=== PATIENT | female | born 1965 | race African-American/Black ===

== ENCOUNTER 2017-07-27 09:07 | Observation (INO) | payer MEDICARE ==
[~2017-07-27] VITALS: Ht 167.6 cm; Wt 91.2 kg
[2017-07-27] MEDS ORDERED: SODIUM CHLORIDE 0.9% 1000ML 2,000 ML IV STA (09:18)
[2017-07-27] MEDS ORDERED: INSULIN REGULAR, HUMAN 100 UNIT/1 ML 3ML VIAL IV ONE ×2 (09:30→11:15)
--- NOTE | 2017-07-27 09:48 | Diagnostic Imaging Report ---
PROCEDURE: CHEST SINGLE (PORTABLE) COMPARISON: None. INDICATIONS: CENTER CHEST PAIN, GLUCOSE PROBLEMS FINDINGS: LUNGS: No consolidations or edema. Minimal right perihilar atelectasis. PLEURA: No effusions or pneumothorax. HEART \T\ MEDIASTINUM: The heart is within normal size-limits. BONES \T\ SOFT TISSUES: No acute findings. CONCLUSION: No acute thoracic abnormality. Arie Seymour D.O. Dictated by: Arie Seymour D.O. on 07/27/2017 at 9:47 Electronically approved by: Arie Seymour D.O. on 07/27/2017 at 9:47
[2017-07-27] MEDS ORDERED: ASPIRIN 325 MG TAB PO ONE (10:30)
[2017-07-27 10:33] LABS: BASOPHILS % 0.3 % (0.0-1.0); EOSINOPHILS # (AUTO) 0.1 (0.0-0.4); EOSINOPHILS % 1.6 % (0.0-6.0); HEMATOCRIT 45.5 % (34.2-44.1); HEMOGLOBIN 15.2 g/dL (12.0-16.0); LYMPHOCYTES # (AUTO) 2.9 (1.0-3.2); LYMPHOCYTES % 35.7 % (18.0-39.1); MEAN CORPUSCULAR HEMOGLOBIN 28.3 pg (28-32); MEAN CORPUSCULAR HGB CONC 33.4 g/dL (31-35); MEAN CORPUSCULAR VOLUME 84.7 fL (81-99); MONOCYTES # (AUTO) 0.5 (0.2-0.8); MONOCYTES % 5.8 % (4.4-11.3); NEUTROPHILS # (AUTO) 4.5 (2.1-6.9); NEUTROPHILS % 56.2 % (38.7-80.0); PLATELET COUNT 267 x10e3/uL (140-360); RED BLOOD COUNT 5.37 x10e6/uL (3.6-5.1); RED CELL DISTRIBUTION WIDTH 13.1 % (11.7-14.4)
[2017-07-27 10:55] LABS: ALANINE AMINOTRANSFERASE 12 IU/L (0-55); ALBUMIN 3.7 g/dL (3.5-5.0); ALBUMIN/GLOBULIN RATIO 0.7 (0.8-2.0); ALKALINE PHOSPHATASE 140 IU/L (40-150); ANION GAP 14.7 mmol/L (8-16); BLOOD UREA NITROGEN 8 mg/dL (7-26); BUN/CREATININE RATIO 8 (6-25); CALCIUM 9.9 mg/dL (8.4-10.2); CARBON DIOXIDE 23 mmol/L (22-29); CHLORIDE 97 mmol/L (98-107); CHOL/HDL RATIO 8.2 (3.0-3.6); CHOLESTEROL 255 MD/DL (0-199); CREATININE, SERUM 1.02 mg/dL (0.57-1.11); EST GLOMERULAR FILTRATION RATE > 60 ML/MIN (60-); HDL CHOLESTEROL 31 MG/DL (40-60); LDL CHOLESTEROL 179 MG/DL (60-130); MAGNESIUM 1.8 MG/DL (1.3-2.1); PHOSPHORUS 3.4 MG/DL (2.3-4.7); POTASSIUM 3.7 mmol/L (3.5-5.1); SODIUM 131 mmol/L (136-145); TRIGLYCERIDES 223 MG/DL (0-149)
[2017-07-27 10:57] LABS: GLUCOSE 501 mg/dL (74-118)
[2017-07-27] MEDS ORDERED: ONDANSETRON HCL INJ 2 MG/ML VIAL IV PRN (11:15)
[2017-07-27] MEDS ORDERED: ASPIRIN 81 MG CHEW TAB PO ONE (11:15)
[2017-07-27] MEDS ORDERED: DEXTROSE 50% SYRINGE 50 ML IV PRN ×2 (11:15→13:15)
[2017-07-27] MEDS ORDERED: SODIUM CHLORIDE FLUSH 10 ML SYR INJ PRN (11:15)
[2017-07-27] MEDS: NITROGLYCERIN 0.1MG/HR PATCH TOP SCH (11:21)
[2017-07-27] MEDS: SODIUM CHLORIDE 0.9% 1000ML 1,000 ML IV SCH ×2 (11:38→19:27)
[2017-07-27 12:15] LABS: BILIRUBIN,URINE NEGATIVE (NEGATIVE); KETONES,URINE NEGATIVE (NEGATIVE); LEUKOCYTE ESTERASE ,URINE NEGATIVE (NEGATIVE); NITRITE,URINE NEGATIVE (NEGATIVE); PROTEIN,URINE DIPSTICK NEGATIVE (NEGATIVE); URINE UROBILINOGEN 0.2 mg/dL (0.2 - 1)
[2017-07-27 12:17] LABS: CLARITY,URINE SL CLOUDY (CLEAR); COLOR,URINE YELLOW (YELLOW)
--- OUTSIDE RECORDS SUMMARY | 2017-07-27 12:22 | XMS REPORT ---
Author Author [facility] Address Unknown Phone Unavailable Care Team Providers Care Civil Project Engineer Name Role Phone MOODY BRAY Unavailable Unavailable SOFÍASandrine HARPAL Unavailable Unavailable Problems This patient has no known problems. Allergies, Adverse Reactions, Alerts This patient has no known allergies or adverse reactions. Medications This patient has no known medications. Results Test Description Test Time Test Comments Text Results Atomic Results Result Comments CT, ABDOMEN 2017-03-03 22:41:00 Reason for exam:->abdominal painIs the patient ?->UnknownWhat is the patient's sedation requirement?->No Sedation FINAL REPORT CT, ABDOMEN \T\ PELVIS, WITHOUT IV CONTRAST INDICATION: abdominal painabdominal pain, allergy to contrast COMPARISON: November 01, 2004 TECHNIQUE: CT of the abdomen and pelvis WITHOUT intravenous contrast. DOSE REDUCTION: Dose modulation, iterative reconstruction , and/or weight-based adjustment of the mA/kV was utilized to reduce the radiation dose to as low as reasonably achievable. FINDINGS:NOTE: Absence of intravenous contrast decreases sensitivity for focal lesions and vascular pathology. Lower thorax: Unremarkable Liver: No parenchymal abnormality.Gallbladder and biliary tree: No ductal dilation or stones.Pancreas : No acute findings.Spleen: No acute findingsAdrenal Glands: No acute findings.Kidneys and ureters: No hydronephrosis or nephrolithiasis.Bladder and reproductive organs: Unremarkable. Stomach and Duodenum: No significant findings.Small and large intestine: Normal calibers. Moderate stool burden.Appendix: Normal. Major vascular structures: Normal aortic caliber.Peritoneum and retroperitoneum: No free air, fluid or adenopathy. Skeleton: Mild multilevel degenerative changes and discogenic disease worse at L4-L5.Additional findings: None. IMPRESSION: Limited noncontrast evaluation revealing no acute abnormality in the abdomen or pelvis. Moderate stool burden may reflect constipation. Signed: JR Chris Robert MDReport Verified Date/Time: 03/03/2017 22:41:49 Reading Location: [facility] B1 C013T Transitional Reading Room -GLUCOSE METER 2017-03-03 21:14:00 POC-GLUCOSE METER (BEAKER) (test qqfx=3799) 141 mg/dL 70-110 TESTED AT [facility] [address] [facility] [address] POCT-GLUCOSE [id number] 21:08:00* Test Item Value Reference Range Comments POC-GLUCOSE METER (BEAKER) (test ozgy=0098) 154 mg/dL 70-110 TESTED AT [facility] [address] [facility] [address] URINALYSIS W/ [id number] 19:07:00* Test Item Value Reference Range Comments COLOR (BEAKER) (test eojj=412) Yellow CLARITY (BEAKER) (test dfok=328) Clear SPECIFIC GRAVITY UA (BEAKER) (test ofxc=490) 1.033 1.001-1.035 PH UA (BEAKER) (test pzie=929) 5.5 5.0-8.0 PROTEIN UA (BEAKER) (test objp=580) 20 mg/dL Negative GLUCOSE UA (BEAKER) (test emdj=319) >1000 mg/dL Negative KETONES UA (BEAKER) (test zgrv=466) Negative Negative BILIRUBIN UA (BEAKER) (test nhyr=589) Negative Negative BLOOD UA (BEAKER) (test fupe=274) Negative Negative NITRITE UA (BEAKER) (test nexz=056) Negative Negative LEUKOCYTE ESTERASE UA (BEAKER) (test mxul=408) Small Negative UROBILINOGEN UA (BEAKER) (test yyug=851) 2.0 mg/dL 0.2-1.0 RBC UA (BEAKER) (test bddd=324) 2 /HPF WBC UA (BEAKER) (test sbqv=213) 18 /HPF MUCUS (BEAKER) (test revz=9912) Many SQUAMOUS EPITHELIAL (BEAKER) (test lqiz=887) 3 /HPF HYALINE CASTS (BEAKER) (test rwda=658) 12 /LPF SOURCE(BEAKER) (test amqi=0127) Urine, Voided [id number] 17:50:00* Test Item Value Reference Range Comments LIPASE (BEAKER) (test exwt=934) 16 U/L 8-78 [id number] 17:50:00* Test Item Value Reference Range Comments AMYLASE (BEAKER) (test tjrq=596) 38 U/L 25-125 BASIC METABOLIC [id number] 17:50:00* Test Item Value Reference Range Comments SODIUM (BEAKER) (test icln=328) 139 meq/L 136-145 POTASSIUM (BEAKER) (test xtqn=661) 4.0 meq/L 3.5-5.1 CHLORIDE (BEAKER) (test jmhh=806) 104 meq/L 98-107 CO2 (BEAKER) (test ufny=913) 27 meq/L 22-29 BLOOD UREA NITROGEN (BEAKER) (test wart=288) 14 mg/dL 7-21 CREATININE (BEAKER) (test ewas=845) 0.87 mg/dL 0.57-1.25 GLUCOSE RANDOM (BEAKER) (test nrjb=500) 170 mg/dL 70-105 CALCIUM (BEAKER) (test ocye=856) 9.8 mg/dL 8.4-10.2 EGFR (BEAKER) (test fawc=4149) 83 mL/min/1.73 sq m ESTIMATED GFR IS NOT ACCURATE CREATININE CLEARANCE IN PREDICTING GLOMERULAR FILTRATION RATE. ESTIMATED GFR IS NOT APPLICABLE FOR DIALYSIS PATIENTS. HEPATIC FUNCTION [id number] 17:50:00* Test Item Value Reference Range Comments TOTAL PROTEIN (BEAKER) (test iacw=387) 8.2 gm/dL 6.0-8.3 ALBUMIN (BEAKER) (test eeme=1946) 4.2 g/dL 3.5-5.0 BILIRUBIN TOTAL (BEAKER) (test poyc=166) 0.3 mg/dL 0.2-1.2 BILIRUBIN DIRECT (BEAKER) (test odmh=622) 0.1 mg/dL 0.1-0.5 ALKALINE PHOSPHATASE (BEAKER) (test doqw=769) 91 U/L 40-150 AST (SGOT) (BEAKER) (test kdfa=709) 9 U/L 5-34 ALT (SGPT) (BEAKER) (test dtzs=806) 7 U/L 6-55 CBC W/PLT COUNT & AUTO [id number] 17:12:00* Test Item Value Reference Range Comments WHITE BLOOD CELL COUNT (BEAKER) (test wxwa=583) 11.6 K/ L 3.5-10.5 RED BLOOD CELL COUNT (BEAKER) (test byxc=165) 5.42 M/ L 3.93-5.22 HEMOGLOBIN (BEAKER) (test eayn=484) 15.2 GM/DL 11.2-15.7 HEMATOCRIT (BEAKER) (test cqvw=563) 47.4 % 34.1-44.9 MEAN CORPUSCULAR VOLUME (BEAKER) (test gnyh=346) 87.5 fL 79.4-94.8 MEAN CORPUSCULAR HEMOGLOBIN (BEAKER) (test byij=703) 28.0 pg 25.6-32.2 MEAN CORPUSCULAR HEMOGLOBIN CONC (BEAKER) (test jydw=232) 32.1 GM/DL 32.2- 35.5 RED CELL DISTRIBUTION WIDTH (BEAKER) (test wdrj=592) 13.8 % 11.7-14.4 PLATELET COUNT (BEAKER) (test fgwg=792) 248 K/CU MM 150-450 MEAN PLATELET VOLUME (BEAKER) (test rftv=804) 10.4 fL 9.4-12.3 NUCLEATED RED BLOOD CELLS (BEAKER) (test ninz=999) 0 /100 WBC 0-0 NEUTROPHILS RELATIVE PERCENT (BEAKER) (test xrii=660) 63 % LYMPHOCYTES RELATIVE PERCENT (BEAKER) (test fbjx=065) 30 % MONOCYTES RELATIVE PERCENT (BEAKER) (test btqy=196) 6 % EOSINOPHILS RELATIVE PERCENT (BEAKER) (test rpzx=857) 1 % BASOPHILS RELATIVE PERCENT (BEAKER) (test jadr=935) 0 % NEUTROPHILS ABSOLUTE COUNT (BEAKER) (test nqlo=595) 7.34 K/ L 1.56-6.13 LYMPHOCYTES ABSOLUTE COUNT (BEAKER) (test xgmd=893) 3.43 K/ L 1.18-3.74 MONOCYTES ABSOLUTE COUNT (BEAKER) (test upah=151) 0.65 K/ L 0.24-0.36 EOSINOPHILS ABSOLUTE COUNT (BEAKER) (test xfkg=875) 0.15 K/ L 0.04-0.36 BASOPHILS ABSOLUTE COUNT (BEAKER) (test ykey=501) 0.03 K/ L 0.01-0.08 IMMATURE GRANULOCYTES-RELATIVE PERCENT (BEAKER) (test qmsq=0529) 0 % 0-1 CHEST SINGLE (PORTABLE) [facility] [address] [address] Patient Name: JAMES GEORGE MR #: [id number] : 1965 Age/Sex: 51/F Req #: [id number] Adm Physician: Ordered by: MOODY BRAY MD Report #: [id number] Location: ER Room/Bed: Procedure: [id number] 0023 DX/CHEST SINGLE (PORTABLE) Exam Date: Exam Time: REPORT STATUS: Signed PROCEDURE: CHEST SINGLE (PORTABLE) COMPARISON: None. INDICATIONS: CENTER CHEST PAIN, GLUCOSE PROBLEMS FINDINGS: LUNGS: No consolidations or edema. Minimal right perihilar atelectasis. PLEURA: No effusions or pneumothorax. HEART T MEDIASTINUM: The heart is within normal size-limits. BONES T SOFT TISSUES: No acute findings. CONCLUSION: No acute thoracic abnormality. Suzy Seymour D.O. Dictated by: Suzy Seymour D.O. on 07/27/2017 at 9:47 Electronically approved by: Suzy Seymour D.O. on 07/27/2017 at 9:47 Dictated By: SUZY SEYMOUR DO 6 Transcribed By: TIEN on 07/27/17946 COPY TO: MOODY BRAY MD
--- OUTSIDE RECORDS SUMMARY | 2017-07-27 12:22 | XMS REPORT | Clinical Summary ---
Author Author RICHARD [facility] Address Unknown Phone Unavailable Care Team Providers Care Infantry Officer Name Role Phone PCP Unavailable Allergies Active Allergy Reactions Severity Noted Date Comments Codeine Rash High 11/17/2012 Tramadol Rash High 11/17/2012 Iodine And Iodide Swelling 03/03/2017 IV contrast Containing Products Current Medications Prescription Sig. Disp. Refills Start End Date Status Date metFORMIN (GLUCOPHAGE) Take 500 mg by mouth 2 Active 500 MG tablet (two) times daily with breakfast and dinner. atorvastatin (LIPITOR) 40 Take 40 mg by mouth Active MG tablet daily. canagliflozin (INVOKANA) Take 100 mg by mouth Active 100 mg tablet daily. fLUoxetine (PROZAC) 20 MG Take 20 mg by mouth 3 Active capsule (three) times daily Dose and frequency confirmed and verified with the patient. . FLUTICASONE PROPIONATE by Nasal route as Active (FLUTICASONE NASAL) directed 50 mcg/act - Take 2 sprays in each nostril daily . gabapentin (NEURONTIN) Take 100 mg by mouth 3 Active 100 MG capsule (three) times daily. glipiZIDE (GLUCOTROL) 10 Take 10 mg by mouth 2 Active MG tablet (two) times daily before meals. hydrOXYzine (ATARAX) 25 Take 25 mg by mouth as Active MG tablet needed for Itching. lisinopril Take 5 mg by mouth daily. Active (PRINIVIL,ZESTRIL) 5 MG tablet naproxen sodium (ANAPROX) Take 550 mg by mouth as Active 550 MG tablet needed for Pain. omeprazole (PRILOSEC) 20 Take 20 mg by mouth Active MG capsule daily. clidinium-chlordiazepoxid Take 1 capsule by mouth 4 16 capsule 0 03/0304/02/20 e (LIBRAX) 5-2.5 mg per (four) times daily before 17 17 capsule meals and nightly for 30 days. Active Problems Not on file Encounters Date Type Specialty Care Team Description 03/03/2017 Emergency Emergency Medicine Jass Persaud MD Generalized abdominal pain (Primary Dx);Pain of left lower extremity after 07/26/2016 Social History Tobacco Use Types Packs/Day Years Used Date Current Every Day Smoker 1 Smokeless Tobacco: Never Used Alcohol Use Drinks/Week oz/Week Comments No Sex Assigned at Date Recorded Not on file Last Filed Vital Signs Vital Sign Reading Time Taken Blood Pressure 103/58 03/03/2017 9:17 PM CDT Pulse 98 03/03/2017 9:17 PM CDT Temperature 37.2 C (99 F) 03/03/2017 2:49 PM CDT Respiratory Rate 18 03/03/2017 9:17 PM CDT Oxygen Saturation 99% 03/03/2017 9:17 PM CDT Inhaled Oxygen - - Concentration Weight 90.7 kg (200 lb) 03/03/2017 2:49 PM CDT Height 167.6 cm (5' 6") 03/03/2017 2:49 PM CDT Body Mass Index 32.28 03/03/2017 2:49 PM CDT Plan of Treatment Not on file Results * PERIPHERAL VASCULAR REPORT - SCAN (03/04/2017 10:53 AM) * CT abdomen/pelvis without iv contrast (03/03/2017 10:10 PM) Specimen Performing Laboratory [employer] Narrative FINAL REPORT CT, ABDOMEN \\T\\ PELVIS, WITHOUT IV CONTRAST INDICATION: abdominal pain abdominal pain, allergy to contrast COMPARISON: November 01, 2004 TECHNIQUE: CT of the abdomen and pelvis WITHOUT intravenous contrast. DOSE REDUCTION: Dose modulation, iterative reconstruction, and/or weight-based adjustment of the mA/kV was utilized to reduce the radiation dose to as low as reasonably achievable. FINDINGS: NOTE:Absence of intravenous contrast decreases sensitivity for focal lesions and vascular pathology. Lower thorax: Unremarkable Liver: No parenchymal abnormality. Gallbladder and biliary tree: No ductal dilation or stones. Pancreas: No acute findings. Spleen: No acute findings Adrenal Glands: No acute findings. Kidneys and ureters: No hydronephrosis or nephrolithiasis. Bladder and reproductive organs: Unremarkable. Stomach and Duodenum: No significant findings. Small and large intestine: Normal calibers. Moderate stool burden. Appendix: Normal. Major vascular structures: Normal aortic caliber. Peritoneum and retroperitoneum: No free air, fluid or adenopathy. Skeleton: Mild multilevel degenerative changes and discogenic disease worse at L4-L5. Additional findings: None. IMPRESSION: Limited noncontrast evaluation revealing no acute abnormality in the abdomen or pelvis. Moderate stool burden may reflect constipation. Signed: JR Chris Robert MD Report Verified Date/Time:03/03/2017 22:41:49 Reading Location: [address] Transitional Reading Room Procedure Note Interface, External Ris In - 03/03/2017 10:44 PM CDT FINAL REPORT CT, ABDOMEN \\T\\ PELVIS, WITHOUT IV CONTRAST INDICATION: abdominal pain abdominal pain, allergy to contrast COMPARISON: November 01, 2004 TECHNIQUE: CT of the abdomen and pelvis WITHOUT intravenous contrast. DOSE REDUCTION: Dose modulation, iterative reconstruction, and/or weight-based adjustment of the mA/kV was utilized to reduce the radiation dose to as low as reasonably achievable. FINDINGS: NOTE: Absence of intravenous contrast decreases sensitivity for focal lesions and vascular pathology. Lower thorax: Unremarkable Liver: No parenchymal abnormality. Gallbladder and biliary tree: No ductal dilation or stones. Pancreas: No acute findings. Spleen: No acute findings Adrenal Glands: No acute findings. Kidneys and ureters: No hydronephrosis or nephrolithiasis. Bladder and reproductive organs: Unremarkable. Stomach and Duodenum: No significant findings. Small and large intestine: Normal calibers. Moderate stool burden. Appendix: Normal. Major vascular structures: Normal aortic caliber. Peritoneum and retroperitoneum: No free air, fluid or adenopathy. Skeleton: Mild multilevel degenerative changes and discogenic disease worse at L4-L5. Additional findings: None. IMPRESSION: Limited noncontrast evaluation revealing no acute abnormality in the abdomen or pelvis. Moderate stool burden may reflect constipation. Signed: JR Chris Robert MD Report Verified Date/Time: 03/03/2017 22:41:49 Reading Location: [address] Transitional Reading Room * Venous doppler leg, left (03/03/2017 9:51 PM) Component Value Ref Range Ejection Fraction Specimen Performing Laboratory [facility] Impressions Left Impression 1. There is no deep venous obstruction in the common femoral, profunda femoral, femoral, popliteal, posterior tibial or peroneal veins. 2. There is no superficial venous obstruction in the great saphenous vein. Conclusions Summary Venous duplex imaging and compression of the left lower extremity were performed. The veins were adequately visualized. The left venous system was patent and compressible with no evidence of thrombus. The venous Doppler waveforms were phasic with respiration . Signature Velocities are measured in cm/s ; Diameters are measured in cm Narrative [facility] - Lower Extremities DVT Study Demographics Patient Name Emile FLORES of Study 03/03/2017 NEIDA [id number] 51 Visit Number [id number] Female Accession Number [id number] of 1965 ReferringBeers Jass SandersRoom Number ED14 Physician SonographRonak Calderon. Physician IGOR Penny, SOHAM Procedure Type of Study: Veins: Lower Extremities DVT Study, VENOUS DOPPLER LEG, LEFT. Indications for Study:Abdominal pain and Leg pain . Patient Status:STAT. Study Location:Portable. Technical Quality:Adequate visualization. Risk Factors History of Disease + +----+ + !Diagnosis!Date!Comments ! + +----+ + !History/Risk Factors:!!Current Smoker, DM, Obesity ! + +----+ + Procedure Note Interface, External Ris In - 03/04/2017 10:24 AM CDT [facility] - Lower Extremities DVT Study Demographics Patient Name JAMES FLORES Date of Study 03/03/2017 NEIDA Age 51 Visit Number [id number] Gender Female Accession Number [id number] Date of 1965 Referring Hung CabezasMimi Room Number ED14 Physician Housekeeping Assistant Mendoza Oliveira Interpreting Tommy Navarro, Physician , RPVI Procedure Type of Study: Veins: Lower Extremities DVT Study, VENOUS DOPPLER LEG, LEFT. Indications for Study:Abdominal pain and Leg pain . Patient Status:STAT. Study Location:Portable. Technical Quality:Adequate visualization. Risk Factors History of Disease + +----+ + !Diagnosis !Date!Comments ! + +----+ + !History/Risk Factors: ! !Current Smoker, DM, Obesity ! + +----+ + Impressions Left Impression 1. There is no deep venous obstruction in the common femoral, profunda femoral, femoral, popliteal, posterior tibial or peroneal veins. 2. There is no superficial venous obstruction in the great saphenous vein. Conclusions Summary Venous duplex imaging and compression of the left lower extremity were performed. The veins were adequately visualized. The left venous system was patent and compressible with no evidence of thrombus. The venous Doppler waveforms were phasic with respiration . Signature Velocities are measured in cm/s ; Diameters are measured in cm * POC-Glucose meter (03/03/2017 9:12 PM) Only the most recent of 2 results within the time period is included. Component Value Ref Range POC-Glucose Meter 141 (H)Comment: TESTED AT [address] 70 - 110 mg /dL [facility] [address] Specimen Performing Laboratory Blood [facility] [address] [address] * CBC with platelet count + automated diff (03/03/2017 4:43 PM) Component Value Ref Range WBC 11.6 (H) 3.5 - 10.5 K/ L RBC 5.42 (H) 3.93 - 5.22 M/ L Hemoglobin 15.2 11.2 - 15.7 GM/DL Hematocrit 47.4 (H) 34.1 - 44.9 % MCV 87.5 79.4 - 94.8 fL MCH 28.0 25.6 - 32.2 pg MCHC 32.1 (L) 32.2 - 35.5 GM/DL RDW 13.8 11.7 - 14.4 % Platelets 248 150 - 450 K/CU MM MPV 10.4 9.4 - 12.3 fL nRBC 0 0 - 0 /100 WBC % Neutros 63 % % Lymphs 30 % % Monos 6 % % Eos 1 % % Baso 0 % # Neutros 7.34 (H) 1.56 - 6.13 K/ L # Lymphs 3.43 1.18 - 3.74 K/ L # Monos 0.65 (H) 0.24 - 0.36 K/ L # Eos 0.15 0.04 - 0.36 K/ L # Baso 0.03 0.01 - 0.08 K/ L Immature 0 0 - 1 % Granulocytes-Relative Specimen Performing Laboratory Blood - Arm, Left [address] [address] * Urinalysis w/ Microscopic (03/03/2017 4:43 PM) Component Value Ref Range Color, UA Yellow Clarity, UA Clear Specific Davis, UA 1.033 1.001 - 1.035 pH, UA 5.5 5.0 - 8.0 Protein, UA 20 mg/dL (A) Negative Glucose, UA >1000 mg/dL (A) Negative Ketones, UA Negative Negative Bilirubin, UA Negative Negative Blood, UA Negative Negative Nitrite, UA Negative Negative Leukocytes, UA Small (A) Negative Urobilinogen, UA 2.0 (H) 0.2 - 1.0 mg/dL RBC, UA 2 /HPF WBC, UA 18 /HPF Mucus Many Squam Epithel, UA 3 /HPF Hyaline Casts, UA 12 /LPF Specimen Source Urine, Voided Specimen Performing Laboratory Urine - Urine, Voided [address] [address] * CBC with platelet count + automated diff (03/03/2017 4:43 PM) Specimen Performing Laboratory Blood Narrative The following orders were created for panel order CBC with platelet count + automated diff. Procedure Abnormality Status --------- - ------ CBC with platelet count ...[[id number]]AbnormalFinal result Please view results for these tests on the individual orders. * Lipase (03/03/2017 4:43 PM) Component Value Ref Range Lipase 16 8 - 78 U/L Specimen Performing Laboratory Blood - Arm, [address] [address] * Amylase (03/03/2017 4:43 PM) Component Value Ref Range Amylase 38 25 - 125 U/L Specimen Performing Laboratory Blood - Arm, [address] [address] * Hepatic function panel (03/03/2017 4:43 PM) Component Value Ref Range Protein, Total 8.2 6.0 - 8.3 gm/dL Albumin 4.2 3.5 - 5.0 g/dL Total Bilirubin 0.3 0.2 - 1.2 mg/dL Bilirubin, Direct 0.1 0.1 - 0.5 mg/dL Alkaline Phosphatase 91 40 - 150 U/L AST 9 5 - 34 U/L ALT 7 6 - 55 U/L Specimen Performing Laboratory Blood - Arm, [address] [address] * Basic Metabolic Panel (03/03/2017 4:43 PM) Component Value Ref Range Sodium 139 136 - 145 meq/L Potassium 4.0 3.5 - 5.1 meq/L Chloride 104 98 - 107 meq/L CO2 27 22 - 29 meq/L BUN 14 7 - 21 mg/dL Creatinine 0.87 0.57 - 1.25 mg/dL Glucose 170 (H) 70 - 105 mg/dL Calcium 9.8 8.4 - 10.2 mg/dL EGFR 83Comment: ESTIMATED GFR IS NOT ACCURATE mL/min/1.73 sq m CREATININE CLEARANCE IN PREDICTING GLOMERULAR FILTRATION RATE. ESTIMATED GFR IS NOT APPLICABLE FOR DIALYSIS PATIENTS. Specimen Performing Laboratory Blood - Arm, [address] [address] after 07/26/2016
[2017-07-27 13:12] VITALS: BP 101/53
[2017-07-27 13:25] LABS: EPITHELIAL CELLS,URINE RARE /LPF
[2017-07-27] MEDS ORDERED: GABAPENTIN300 MG PO (13:26)
[2017-07-27] MEDS ORDERED: OMEPRAZOLE40 MG PO (13:26)
[2017-07-27] MEDS ORDERED: GLIPIZIDE5 MG PO (13:26)
[2017-07-27] MEDS ORDERED: FLUTICASONE PRO16 GM (13:26)
[2017-07-27] MEDS ORDERED: [UNRECOGNIZED DRUG - REMARK] TOP (13:26)
[2017-07-27] MEDS ORDERED: FLUOXETINE HCL20 MG PO (13:26)
[2017-07-27] MEDS ORDERED: METFORMIN HCL500 MG PO (13:26)
[2017-07-27] MEDS ORDERED: HYDROXYZINE HCL25 MG PO (13:26)
[2017-07-27] MEDS ORDERED: LISINOPRIL2.5 MG PO (13:26)
[2017-07-27] MEDS ORDERED: ATORVASTATIN CA20 MG PO (13:26)
[2017-07-27] MEDS ORDERED: DICYCLOMINE HCL10 MG PO (13:26)
[2017-07-27 13:32] VITALS: BP 101/53
[2017-07-27 14:01] VITALS: BP 101/53
[2017-07-27] MEDS: INSULIN LISPRO 100 UNIT/1 ML 3ML VIAL SQ SCH ×2 (16:07→21:46)
[2017-07-27 16:45] VITALS: BP 149/74
[2017-07-27] MEDS: ACETAMINOPHEN 325 MG TAB PO PRN (17:15)
[2017-07-27] MEDS: PANTOPRAZOLE SOD 40 MG TABEC PO SCH (17:15)
[2017-07-27 20:00] VITALS: BP 100/56
[2017-07-27] MEDS ORDERED: ATORVASTATIN 20 MG TAB PO SCH (21:00)
[2017-07-27] MEDS: GABAPENTIN 300 MG CAP PO SCH (21:44)
[2017-07-27 22:48] VITALS: BP 100/56
[2017-07-28] VITALS: BP 120/66
[2017-07-28] MEDS: ACETAMINOPHEN 325 MG TAB PO PRN (02:52)
[2017-07-28] MEDS: GABAPENTIN 300 MG CAP PO SCH ×2 (02:52→15:06)
[2017-07-28] MEDS: SODIUM CHLORIDE 0.9% 1000ML 1,000 ML IV SCH ×2 (03:53→11:09)
[2017-07-28 04:00] VITALS: BP 147/77
[2017-07-28 06:25] LABS: BASOPHILS % 0.4 % (0.0-1.0); EOSINOPHILS # (AUTO) 0.2 (0.0-0.4); EOSINOPHILS % 1.9 % (0.0-6.0); HEMATOCRIT 38.2 % (34.2-44.1); HEMOGLOBIN 12.6 g/dL (12.0-16.0); LYMPHOCYTES # (AUTO) 3.5 (1.0-3.2); LYMPHOCYTES % 36.6 % (18.0-39.1); MEAN CORPUSCULAR HEMOGLOBIN 28.3 pg (28-32); MEAN CORPUSCULAR VOLUME 85.7 fL (81-99); MONOCYTES # (AUTO) 0.5 (0.2-0.8); MONOCYTES % 5.5 % (4.4-11.3); NEUTROPHILS # (AUTO) 5.3 (2.1-6.9); NEUTROPHILS % 55.3 % (38.7-80.0); PLATELET COUNT 206 x10e3/uL (140-360); RED BLOOD COUNT 4.46 x10e6/uL (3.6-5.1); RED CELL DISTRIBUTION WIDTH 13.2 % (11.7-14.4)
[2017-07-28 06:44] LABS: ANION GAP 10.9 mmol/L (8-16); BLOOD UREA NITROGEN 7 mg/dL (7-26); BUN/CREATININE RATIO 10 (6-25); CALCIUM 8.2 mg/dL (8.4-10.2); CARBON DIOXIDE 23 mmol/L (22-29); CHLORIDE 107 mmol/L (98-107); CREATININE, SERUM 0.71 mg/dL (0.57-1.11); EST GLOMERULAR FILTRATION RATE > 60 ML/MIN (60-); GLUCOSE 257 mg/dL (74-118); POTASSIUM 3.9 mmol/L (3.5-5.1); SODIUM 137 mmol/L (136-145)
[2017-07-28 06:46] LABS: CREATINE KINASE 48 IU/L (29-168); LIPASE 117 U/L (8-78)
[2017-07-28] MEDS ORDERED: CANAGLIFLOZIN 100 MG TABLET PO SCH (07:30)
[2017-07-28 08:04] VITALS: BP 129/80
[2017-07-28] MEDS: GLIPIZIDE 5 MG TAB PO SCH ×2 (08:34→16:35)
[2017-07-28] MEDS: INSULIN LISPRO 100 UNIT/1 ML 3ML VIAL SQ SCH ×3 (08:35→16:35)
[2017-07-28] MEDS: NITROGLYCERIN 0.1MG/HR PATCH TOP SCH (08:35)
[2017-07-28] MEDS: PANTOPRAZOLE SOD 40 MG TABEC PO SCH (08:35)
[2017-07-28] MEDS ORDERED: ASPIRIN 81 MG ENTERIC COATED PO SCH (09:00)
[2017-07-28] MEDS ORDERED: FLUOXETINE HCL 20 MG CAP PO SCH (09:00)
[2017-07-28 09:27] VITALS: BP 129/80
[2017-07-28 12:05] VITALS: BP 106/60
[2017-07-28 15:46] VITALS: BP 122/69
--- NOTE | 2017-07-28 15:56 | Discharge Summary ---
FINAL DIAGNOSIS: Uncontrolled diabetes. SECONDARY DIAGNOSIS 1. Dyslipidemia. 2. Sciatica. 3. Gastroesophageal reflux disease. CONSULTANTS: None. PROCEDURES/STUDIES PERFORMED: None. HISTORY: Per H\T\P. HOSPITAL COURSE: Patient was admitted with sugar in the 400s, the reason being that she stopped her metformin about a month ago due to diarrhea and also she ran out of her Invokana about a month ago and could not get a refill. Once I restarted her on her Invokana and continuing her glipizide, her sugar is mostly in the 200s now. Her pseudohyponatremia got better as well. Unfortunately, her A1c is still 12.8%. I have discussed this with her primary care doctor, Natalio Shi. Patient will follow up with her, and she will refer her to an medical stenographer. Most likely she will need to be started on insulin. As far as her chronic abdominal pain, outpatient workup has been done including EGD and colonoscopy. Given the location of the pain being epigastric, I went ahead and checked her lipase, which is slightly elevated. I have relayed this information to her PCP. I think, given that it is only mildly elevated, outpatient workup/followup is appropriate. Patient will go back to the GI doctor that she was seeing. CONDITION ON DISCHARGE: Stable. DISCHARGE MEDICATIONS: Please see medication reconciliation form. SONU BHAGAT M.D. Job#: [id number] cc:NATALIO SHI DO
== END 2017-07-28 16:58 | disposition home or self-care (01) ==
LOC: ER 09:07 → EDBEDREQ 11:56 → INTOOBSV 12:19 → ERHOLD 12:19 → MED/SURG 12:21
PROVIDERS: ADMIT Internal Medicine; ATTEND Internal Medicine
DX: E11.65 Type 2 diabetes mellitus with hyperglycemia (principal); E78.5 Hyperlipidemia, unspecified; E87.1 Hypo-osmolality and hyponatremia; K21.9 Gastro-esophageal reflux disease without esophagitis; G57.00 Lesion of sciatic nerve, unspecified lower limb; R07.89 Other chest pain; R10.13 Epigastric pain; G89.29 Other chronic pain; Z91.14 Patient's other noncompliance with medication regimen; Z88.5 Allergy status to narcotic agent; Z91.041 Radiographic dye allergy status; Z79.84 Long term (current) use of oral hypoglycemic drugs
CPT/HCPCS: 36415 ×2; 71045; 80048; 80053; 80061; 81001; 82550; 82553; 82948 ×2; 83036; 83690; 83735; 83930; 84100; 84484 ×2; 85025 ×2; 87086; 93005 ×2; 96372; 99284; G0378 ×2; J7030 ×2

== ENCOUNTER 2018-05-31 11:18 | Emergency (ER) | payer MEDICARE ==
[~2018-05-31] VITALS: Ht 167.6 cm; Wt 98.1 kg
[~2018-05-31 11:18] MED LIST: ATORVASTATIN CA20 MG PO; DICYCLOMINE HCL10 MG PO; FLUOXETINE HCL20 MG PO; FLUTICASONE PRO16 GM; GABAPENTIN300 MG PO; GLIPIZIDE5 MG PO; HYDROXYZINE HCL25 MG PO; LISINOPRIL2.5 MG PO; METFORMIN HCL500 MG PO; OMEPRAZOLE40 MG PO; [UNRECOGNIZED DRUG - REMARK] TOP
--- OUTSIDE RECORDS SUMMARY | 2018-05-31 11:21 | XMS REPORT | Clinical Summary ---
Author Author RICHARD [email or web address] Address Unknown Phone Unavailable Care Team Providers Care Shank Maker Name Role Phone Natalio Shi PCP Allergies Comments Active Allergy Reactions Severity Noted Date Codeine Rash High 11/17/2012 IV contrast Iodine And Iodide Swelling 03/03/2017 Containing Products Tramadol Rash High 11/17/2012 Medications End Date Status Medication Sig Dispensed Refills Start Date Active metFORMIN (GLUCOPHAGE) Take 500 mg 0 500 MG tablet by mouth 2 (two) times daily with breakfast and dinner. Active atorvastatin (LIPITOR) 40 Take 40 mg by 0 MG tablet mouth daily. Active canagliflozin (INVOKANA) Take 100 mg 0 100 mg tablet by mouth daily. Active fLUoxetine (PROZAC) 20 MG Take 20 mg by 0 capsule mouth 3 (three) times daily Dose and frequency confirmed and verified with the patient. . Active FLUTICASONE PROPIONATE by Nasal 0 (FLUTICASONE NASAL) route as directed 50 mcg/act - Take 2 sprays in each nostril daily . Active gabapentin (NEURONTIN) Take 100 mg 0 100 MG capsule by mouth 3 (three) times daily. Active glipiZIDE (GLUCOTROL) 10 Take 10 mg by 0 MG tablet mouth 2 (two) times daily before meals. Active hydrOXYzine (ATARAX) 25 Take 25 mg by 0 MG tablet mouth as needed for Itching. Active lisinopril Take 5 mg by 0 (PRINIVIL,ZESTRIL) 5 MG mouth daily. tablet Active naproxen sodium (ANAPROX) Take 550 mg 0 550 MG tablet by mouth as needed for Pain. Active omeprazole (PRILOSEC) 20 Take 20 mg by 0 MG capsule mouth daily. Active Problems Not on file Social History Date Tobacco Use Types Packs/Day Years Used Current Every Day Smoker 1 Smokeless Tobacco: Never Used Alcohol Use Drinks/Week oz/Week Comments No Sex Assigned at Date Recorded Not on file Industry Job Start Date Occupation Not on file Not on file Not on file Travel End Travel History Travel Start No recent travel history available. Last Filed Vital Signs Not on file Plan of Treatment Not on file Results Not on fileafter 05/30/2017 Insurance Payer Benefit Subscriber ID Type Phone Address Plan / Group [facility] xxxxxxxxxxx MEDICARE ADV
[2018-05-31] MEDS ORDERED: SODIUM CHLORIDE 0.9% 1000ML 1,000 ML IV STA (11:35)
[2018-05-31 12:14] LABS: BASOPHILS % 0.1 % (0.0-1.0); HEMATOCRIT 44.5 % (34.2-44.1); HEMOGLOBIN 14.7 g/dL (12.0-16.0); LYMPHOCYTES # (AUTO) 1.4 (1.0-3.2); LYMPHOCYTES % 8.8 % (18.0-39.1); MEAN CORPUSCULAR HEMOGLOBIN 27.9 pg (28-32); MEAN CORPUSCULAR VOLUME 84.4 fL (81-99); MONOCYTES # (AUTO) 0.5 (0.2-0.8); MONOCYTES % 3.5 % (4.4-11.3); NEUTROPHILS # (AUTO) 13.4 (2.1-6.9); NEUTROPHILS % 87.1 % (38.7-80.0); PLATELET COUNT 287 x10e3/uL (140-360); RED BLOOD COUNT 5.27 x10e6/uL (3.6-5.1); RED CELL DISTRIBUTION WIDTH 13.2 % (11.7-14.4)
[2018-05-31] MEDS ORDERED: MORPHINE SULFATE INJ 4 MG/ML INJ IV ONE (12:15)
[2018-05-31] MEDS ORDERED: ONDANSETRON HCL INJ 2 MG/ML VIAL IV ONE (12:15)
[2018-05-31 12:20] LABS: CLARITY,URINE SL CLOUDY (CLEAR); COLOR,URINE YELLOW (YELLOW); KETONES,URINE 1+ (NEGATIVE); LEUKOCYTE ESTERASE ,URINE NEGATIVE (NEGATIVE); NITRITE,URINE NEGATIVE (NEGATIVE); PROTEIN,URINE DIPSTICK 2+ (NEGATIVE)
[2018-05-31 12:21] LABS: BILIRUBIN,URINE NEGATIVE (NEGATIVE); URINE UROBILINOGEN 0.2 mg/dL (0.2 - 1)
[2018-05-31 12:26] LABS: ALANINE AMINOTRANSFERASE 12 IU/L (0-55); ALBUMIN 3.7 g/dL (3.5-5.0); ALBUMIN/GLOBULIN RATIO 0.8 (0.8-2.0); ALKALINE PHOSPHATASE 97 IU/L (40-150); AMYLASE 32 U/L (25-125); ANION GAP 17.6 mmol/L (8-16); BLOOD UREA NITROGEN 9 mg/dL (7-26); BUN/CREATININE RATIO 11 (6-25); CALCIUM 9.8 mg/dL (8.4-10.2); CARBON DIOXIDE 25 mmol/L (22-29); CHLORIDE 96 mmol/L (98-107); CREATININE, SERUM 0.85 mg/dL (0.57-1.11); EST GLOMERULAR FILTRATION RATE > 60 ML/MIN (60-); GLUCOSE 272 mg/dL (74-118); POTASSIUM 3.6 mmol/L (3.5-5.1); SODIUM 135 mmol/L (136-145)
[2018-05-31 12:31] LABS: LIPASE < 4 U/L (8-78)
[2018-05-31 12:47] LABS: BACTERIA,URINE RARE /HPF; EPITHELIAL CELLS,URINE RARE /LPF; WBC,URINE (MAN) 0-5 /HPF (0-5)
--- NOTE | 2018-05-31 15:01 | Diagnostic Imaging Report ---
ADDENDUM #1 ADDENDUM: Dose modulation, iterative reconstruction, and/or weight based adjustment of the mA/kV was utilized to reduce the radiation dose to as low as reasonably achievable. Signed by: Dr. Jag Lang MD on 06/09/2018 5:26 PM ORIGINAL REPORT EXAM: CT Abdomen and Pelvis WITHOUT contrast INDICATION: Lower abdominal pain. COMPARISON: None. TECHNIQUE: Abdomen and pelvis were scanned utilizing a multidetector helical scanner from the lung base to the pubic symphysis without administration of IV contrast. Absence of intravenous contrast decreases sensitivity for detection of focal lesions and vascular pathology. Coronal and sagittal reformations were obtained. Routine protocol was performed. IV CONTRAST: None. ORAL CONTRAST: Water RADIATION DOSE: Total DLP: 727.2 mGy*cm COMPLICATIONS: None FINDINGS: LINES and TUBES: None. LOWER THORAX: Partially seen scattered coronary atherosclerosis. HEPATOBILIARY: No focal hepatic lesions. No biliary ductal dilation. The gallbladder is not visualized. SPLEEN: No splenomegaly. PANCREAS: No focal masses or ductal dilatation. ADRENALS: No adrenal nodules KIDNEYS/URETERS: No hydronephrosis. No cystic or solid mass lesions. No stones. GI TRACT: No abnormal distention, wall thickening, or evidence of bowel obstruction. Appendix is normal. PELVIC ORGANS/BLADDER: Phleboliths in the bladder without definite stone. LYMPH NODES: No lymphadenopathy. VESSELS: Scattered aortic atherosclerotic calcifications. PERITONEUM / RETROPERITONEUM: No free air or fluid. BONES: No acute bony findings. Degenerative disc changes at L4-L5. IMPRESSION: No acute CT findings in the abdomen or pelvis. Normal appendix. Scattered aortic and coronary atherosclerosis. Signed by: Dr. Jag Lang MD on 05/31/2018 2:58 PM
[2018-05-31] MEDS ORDERED: ONDANSETRON HCL INJ 2 MG/ML VIAL IV STA (15:37)
[2018-05-31] MEDS ORDERED: SODIUM CHLORIDE 0.9% 1000ML 1,000 ML IV ONE (15:45)
[2018-05-31] MEDS ORDERED: FAMOTIDINE 20 MG/2 ML VIAL IV ONE (16:15)
[2018-05-31] MEDS ORDERED: LIDOCAINE VISC 2% SOLN 15 ML UDC ONE (16:16)
[2018-05-31] MEDS ORDERED: BELLADONNA ALK/PHENOBARBITAL 5 ML UDC ONE (16:16)
[2018-05-31] MEDS ORDERED: MAGNESIUM/ALUMINUM/SIMETHICONE 30 ML UDC ONE (16:17)
[2018-05-31] MEDS ORDERED: DONNATAL/LIDOCAINE/MAALOX 30 ML SUSP PO ONE (16:25)
--- NOTE | 2018-05-31 16:55 | NUR ---
PATIENT REPORTS IMPROVEMENT IN ABD PAIN AND NAUSEA AFTER GI COCKTAIL AND PEPCID. NO SIGNS OF ACUTE DISTRESS NOTED AT THIS TIME.
== END 2018-05-31 17:06 | disposition home or self-care (01) ==
LOC: ER 11:18
DX: R10.31 Right lower quadrant pain (principal); R10.32 Left lower quadrant pain; R11.2 Nausea with vomiting, unspecified; E86.0 Dehydration; K52.9 Noninfective gastroenteritis and colitis, unspecified; A08.4 Viral intestinal infection, unspecified; E11.40 Type 2 diabetes mellitus with diabetic neuropathy, unspecified
CPT/HCPCS: 36415; 74176; 80053; 81001; 82150; 83690; 85025; 87400; 99284; J2270; J2405; J7030

== ENCOUNTER 2018-07-07 08:46 | Emergency (ER) | payer MEDICARE ==
[~2018-07-07] VITALS: Ht 167.6 cm; Wt 98.0 kg
== END 2018-07-07 09:03 | disposition left against medical advice (07) ==
LOC: ER 08:46
DX: M54.5 Low back pain (principal)

== ENCOUNTER 2019-12-23 23:35 | Emergency (ER) | payer MEDICARE ==
[~2019-12-23] VITALS: Ht 167.6 cm; Wt 98.0 kg
[2019-12-24] MEDS ORDERED: SODIUM CHLORIDE 0.9% 1000ML 1,000 ML IV ONE ×2 (00:15→02:45)
[2019-12-24] MEDS ORDERED: INSULIN REGULAR, HUMAN 100 UNIT/1 ML 3ML VIAL SQ ONE ×2 (00:15→02:45)
--- NOTE | 2019-12-24 00:18 | Emergency Department Note ---
History of Present Illnes History of Present Illness Chief Complaint: Diabetic Crisis History of Present Illness This is a 54 year old female PRESENTS TO THE ER C/O ELEVATED GLUCOSE LEVEL; REPORTS BG AT HOME 586; PT ONLY REPORTS OF HEADACHE; NAD NOTED AT THIS TIME; RESP EVEN/UNLABORED; SKIN WARM, DRY AND COLOR WNL FOR PT; BG IN TRIAGE 576; PT REPORTS BURNING WITH URINATION; . Historian: Patient Arrival Mode: Car Onset (how long ago): hour(s) (8) Location: none Quality: elevated blood sugar Radiation: Reports non-radiation Severity: moderate Onset quality: gradual Duration (how long): hour(s) (8) Timing of current episode: constant Progression: unchanged Chronicity: chronic Context: Denies recent illness, Denies recent surgery Relieving factors: none Exacerbating factors: none Associated symptoms: Reports other (reports burning with urination) Treatments prior to arrival: other (states took her metformin and 35 units of lantus) Past Medical/Family History Physician Review I have reviewed the patient's past medical and family history. Any updates have been documented here. Past Medical History Recent Fever: No Clinical Suspicion of Infectio: No New/Unexplained Change in Ment: No Past Medical History: Diabetes, GERD, Hyperlipedemia Other Medical History: Sciatica Neuropathy Past Surgical History: Cholecysctectomy, Hysterectomy Other Surgery: back knee shoulder ganglion sx on r wrist Social History Smoking Cessation: Current every day smoker Alcohol Use: None Any Illegal Drug Use: No Family History Family history of heart diseas: No Other family history htn, dm Other Last Tetanus: utd Review of Systems Review of Systems Constitutional: Reports no symptoms EENTM: Reports no symptoms Cardiovascular: Reports no symptoms Respiratory: Reports no symptoms Gastrointestinal: Reports no symptoms Genitourinary: Reports as per HPI Musculoskeletal: Reports no symptoms Integumentary: Reports no symptoms Neurological: Reports no symptoms Psychological: Reports no symptoms Endocrine: Reports no symptoms Hematological/Lymphatic: Reports no symptoms Physical Exam Related Data Allergies: Coded Allergies: codeine (Verified Allergy, Mild, 05/31/18) Iodine and Iodide Containing Produc (Verified Allergy, Unknown, 05/31/18) tramadol (Verified Allergy, Unknown, 05/31/18) Triage Vital Signs Vital Signs Date Time Temp Pulse Resp B/P (MAP) Pulse Ox O2 Delivery O2 Flow Rate FiO2 12/24/19 00:01 98.1 103 20 130/73 98 Room Air Vital signs reviewed: Yes Physical Exam CONSTITUTIONAL Constitutional: Present well-developed, Present well-nourished HENT HENT: Present normocephalic, Present atraumatic, Present oropharynx clear/moist, Present nose normal HENT L/R: Present left ext ear normal, Present right ext ear normal EYES Eyes: Reports PERRL, Reports conjunctivae normal NECK Neck: Present ROM normal PULMONARY Pulmonary: Present effort normal, Present breath sounds normal CARDIOVASCULAR Cardiovascular: Present regular rhythm, Present heart sounds normal, Present capillary refill normal, Present normal rate GASTROINTESTINAL Abdominal: Present soft, Present nontender, Present bowel sounds normal GENITOURINARY Genitourinary: Present exam deferred SKIN Skin: Present warm, Present dry MUSCULOSKELETAL Musculoskeletal: Present ROM normal NEUROLOGICAL Neurological: Present alert, Present oriented x 3, Present no gross motor or sensory deficits PSYCHOLOGICAL Psychological: Present mood/affect normal, Present judgement normal Assessment & Plan Medical Decision Making [facility] pt with elevated blood sugar, fsbs on arrival 578 cbc, cmp, ua ordered to eval for dka, uti, dehydration 15 units regular insulin sq ordered 1 liter ns iv bolus ordered PT DISCHARGED HOME Reassessment Reassessment time: 04:11 Reassessment FSBS NOW 219 Assessment & Plan Final Impression: (1) Hyperglycemia due to diabetes mellitus (2) Uncontrolled diabetes mellitus Depart Disposition: HOME, SELF-CARE Last Vital Signs Date Time Temp Pulse Resp B/P (MAP) Pulse Ox O2 Delivery O2 Flow Rate FiO2 12/24/19 00:01 98.1 103 20 130/73 98 Room Air Home Meds Reported Medications Zinc Oxide (DR. WALLER'S DIAPER) 56.7 Gm Oint...g., 1 DOSE TOP HS 07/27/17 Omeprazole (OMEPRAZOLE) 40 Mg Capsule., 20 MG PO DAILY 07/27/17 Metformin Hcl (METFORMIN HCL) 500 Mg Tablet, 1000 MG PO BID, #60 TAB 07/27/17 Lisinopril (LISINOPRIL) 2.5 Mg Tablet, 5 MG PO DAILY, #30 TAB 07/27/17 Hydroxyzine Hcl (HYDROXYZINE HCL) 25 Mg Tablet, 25 MG PO DAILY PRN for ITCHING, #30 TAB 07/27/17 Glipizide (GLIPIZIDE) 5 Mg Tablet, 10 MG PO BIDAC, TAB 07/27/17 Gabapentin (GABAPENTIN) 300 Mg Capsule, 300 MG PO TID, #60 CAP 07/27/17 Fluticasone Propionate (FLUTICASONE PROPIONATE) 16 Gm [place].susp, 2 SPRAYS NA DAILY 07/27/17 Fluoxetine Hcl (FLUOXETINE HCL) 20 Mg Capsule, 20 MG PO DAILY, #30 CAP 07/27/17 Dicyclomine Hcl (DICYCLOMINE HCL) 10 Mg Capsule, 10 MG PO Q6H PRN for ABDOMINAL PAIN 07/27/17 Atorvastatin Calcium (ATORVASTATIN CALCIUM) 20 Mg Tablet, 40 MG PO HS, #30 TAB 07/27/17 Medications in the ED Sodium Chloride 1,000 ml @ 999 mls/hr Q1H1M ONCE IV ; Start 12/24/19 at 00:15; Stop 12/24/19 at 01:15 Insulin Human Regular 15 unit ONCE ONCE SQ ; Start 12/24/19 at 00:15; Stop 12/24/19 at 00:16 CELENA RENTERIA MD Dec 24, 2019 00:18
[2019-12-24 00:52] LABS: BASOPHILS # (AUTO) 0.1 (0.0-0.1); BASOPHILS % 0.4 % (0.0-1.0); EOSINOPHILS # (AUTO) 0.2 (0.0-0.4); EOSINOPHILS % 1.4 % (0.0-6.0); HEMATOCRIT 41.3 % (34.2-44.1); HEMOGLOBIN 13.4 g/dL (12.0-16.0); LYMPHOCYTES # (AUTO) 3.7 (1.0-3.2); LYMPHOCYTES % 27.9 % (18.0-39.1); MEAN CORPUSCULAR HEMOGLOBIN 27.3 pg (28-32); MEAN CORPUSCULAR HGB CONC 32.4 g/dL (31-35); MEAN CORPUSCULAR VOLUME 84.3 fL (81-99); MONOCYTES # (AUTO) 0.8 (0.2-0.8); MONOCYTES % 6.2 % (4.4-11.3); NEUTROPHILS # (AUTO) 8.4 (2.1-6.9); NEUTROPHILS % 63.6 % (38.7-80.0); PLATELET COUNT 259 x10e3/uL (140-360); RED CELL DISTRIBUTION WIDTH 13.7 % (11.7-14.4)
[2019-12-24 00:56] LABS: CLARITY,URINE CLEAR (CLEAR); COLOR,URINE YELLOW (YELLOW); LEUKOCYTE ESTERASE ,URINE NEGATIVE (NEGATIVE); NITRITE,URINE NEGATIVE (NEGATIVE); PROTEIN,URINE DIPSTICK NEGATIVE (NEGATIVE)
[2019-12-24 00:57] LABS: BILIRUBIN,URINE NEGATIVE (NEGATIVE); KETONES,URINE NEGATIVE (NEGATIVE); URINE UROBILINOGEN 0.2 mg/dL (0.2 - 1)
[2019-12-24 01:06] LABS: BACTERIA,URINE FEW /HPF; EPITHELIAL CELLS,URINE FEW /LPF; RBC,URINE 0-5 /HPF (0-5)
[2019-12-24 01:11] LABS: ALBUMIN 3.4 g/dL (3.5-5.0); ALBUMIN/GLOBULIN RATIO 0.8 (0.8-2.0); ANION GAP 14.5 mmol/L (8-16); CREATININE, SERUM 1.24 mg/dL (0.57-1.11); POTASSIUM 4.5 mmol/L (3.5-5.1)
[2019-12-24 04:11] VITALS: BP 119/79
== END 2019-12-24 04:18 | disposition home or self-care (01) ==
LOC: ER 12-24 00:10
DX: E11.65 Type 2 diabetes mellitus with hyperglycemia (principal); E78.5 Hyperlipidemia, unspecified; K21.9 Gastro-esophageal reflux disease without esophagitis; F17.210 Nicotine dependence, cigarettes, uncomplicated
CPT/HCPCS: 36415; 80053; 81001; 82948; 85025; 99283; J1817; J7030

== ENCOUNTER 2020-11-26 11:19 | Emergency (ER) | payer MEDICARE ==
[2020-11-26 11:45] LABS: BASOPHILS % 0.4 % (0.0-1.0); EOSINOPHILS # (AUTO) 0.1 (0.0-0.4); HEMATOCRIT 44.3 % (34.2-44.1); HEMOGLOBIN 14.6 g/dL (12.0-16.0); LYMPHOCYTES # (AUTO) 2.7 (1.0-3.2); LYMPHOCYTES % 27.1 % (18.0-39.1); MEAN CORPUSCULAR HEMOGLOBIN 27.8 pg (28-32); MEAN CORPUSCULAR VOLUME 84.4 fL (81-99); MONOCYTES # (AUTO) 0.7 (0.2-0.8); MONOCYTES % 6.6 % (4.4-11.3); NEUTROPHILS # (AUTO) 6.4 (2.1-6.9); NEUTROPHILS % 64.4 % (38.7-80.0); PLATELET COUNT 229 x10e3/uL (140-360); RED BLOOD COUNT 5.25 x10e6/uL (3.6-5.1); RED CELL DISTRIBUTION WIDTH 13.2 % (11.7-14.4)
[2020-11-26 11:54] LABS: ALBUMIN 3.6 g/dL (3.5-5.0); ALBUMIN/GLOBULIN RATIO 0.8 (0.8-2.0); ANION GAP 15.2 mmol/L (8-16); CALCIUM 8.9 mg/dL (8.4-10.2); CREATININE, SERUM 1.11 mg/dL (0.57-1.11); POTASSIUM 4.2 mmol/L (3.5-5.1)
[2020-11-26 11:58] LABS: CLARITY,URINE CLEAR (CLEAR); COLOR,URINE YELLOW (YELLOW); KETONES,URINE TRACE (NEGATIVE); LEUKOCYTE ESTERASE ,URINE NEGATIVE (NEGATIVE); NITRITE,URINE NEGATIVE (NEGATIVE); PROTEIN,URINE DIPSTICK NEGATIVE (NEGATIVE); RBC,URINE 0-5 /HPF (0-5); URINE UROBILINOGEN 0.2 mg/dL (0.2 - 1); WBC,URINE (MAN) 0-5 /HPF (0-5)
== END 2020-11-26 12:15 | disposition home or self-care (01) ==
LOC: ER 11:19
DX: R10.12 Left upper quadrant pain (principal); R73.9 Hyperglycemia, unspecified
CPT/HCPCS: 36415; 74176; 80053; 81001; 83690; 85025; 99283

== ENCOUNTER 2023-12-12 07:14 | Emergency (ER) | payer MEDICARE ==
[~2023-12-12] VITALS: Ht 167.6 cm; Wt 98.9 kg
[~2023-12-12 07:14] MED LIST changes: +CEFDINIR300 MG PO
[2023-12-12 07:28] VITALS: TEMP 98.8
[2023-12-12] MEDS: KETOROLAC TROMETHAMINE 30 MG/ML VIAL IV STA (07:49)
[2023-12-12 08:04] LABS: BASOPHILS % 0.3 % (0.0-1.0); EOSINOPHILS # (AUTO) 0.1 (0.0-0.4); EOSINOPHILS % 1.6 % (0.0-6.0); HEMATOCRIT 41.3 % (34.2-44.1); HEMOGLOBIN 13.1 g/dL (12.0-16.0); LYMPHOCYTES # (AUTO) 1.8 (1.0-3.2); LYMPHOCYTES % 20.7 % (18.0-39.1); MEAN CORPUSCULAR HEMOGLOBIN 27.7 pg (28-32); MEAN CORPUSCULAR HGB CONC 31.7 g/dL (31-35); MEAN CORPUSCULAR VOLUME 87.3 fL (81-99); MONOCYTES # (AUTO) 0.5 (0.2-0.8); MONOCYTES % 6.2 % (4.4-11.3); NEUTROPHILS # (AUTO) 6.1 (2.1-6.9); NEUTROPHILS % 70.9 % (38.7-80.0); PLATELET COUNT 202 x10e3/uL (140-360); RED BLOOD COUNT 4.73 x10e6/uL (3.6-5.1); RED CELL DISTRIBUTION WIDTH 13.8 % (11.7-14.4); WHITE BLOOD COUNT 8.61 x10e3/uL (4.8-10.8)
[2023-12-12 08:30] VITALS: PULSE 84; RESP 16
[2023-12-12 08:52] LABS: ALANINE AMINOTRANSFERASE 7 IU/L (0-55); ALBUMIN 3.3 g/dL (3.5-5.0); ALBUMIN/GLOBULIN RATIO 0.8 (0.8-2.0); ALKALINE PHOSPHATASE 117 IU/L (40-150); ANION GAP 14.8 mmol/L (8-16); BILIRUBIN,TOTAL 0.3 mg/dL (0.2-1.2); BLOOD UREA NITROGEN 28 mg/dL (7-26); BUN/CREATININE RATIO 16 (6-25); CALCIUM 8.9 mg/dL (8.4-10.2); CARBON DIOXIDE 22 mmol/L (22-29); CHLORIDE 100 mmol/L (98-107); CREATININE, SERUM 1.76 mg/dL (0.57-1.11); EST GLOMERULAR FILTRATION RATE 33 ML/MIN (>=60); LIPASE 40 U/L (8-78); POTASSIUM 4.8 mmol/L (3.5-5.1); SODIUM 132 mmol/L (136-145); TOTAL PROTEIN 7.3 g/dL (6.5-8.1)
[2023-12-12 08:54] LABS: GLUCOSE 503 mg/dL (74-118)
[2023-12-12 08:59] LABS: TROPONIN I < 0.001 ng/mL (0-0.300)
[2023-12-12] MEDS: LACTATED RINGER'S 1,000 ML INJ ONE (09:07)
[2023-12-12] MEDS: INSULIN REGULAR, HUMAN 100 UNIT/1 ML IV ONE (09:07)
[2023-12-12] MEDS ORDERED: FENTANYL CITRATE/PF 100MCG/2 ML INJ IV PRN (09:45)
[2023-12-12] MEDS ORDERED: ULTRAM 50MG50 MG PO (09:48)
[2023-12-12 10:12] VITALS: BP 138/77; PULSE 80; RESP 16; O2SAT 97
== END 2023-12-12 10:12 | disposition home or self-care (01) ==
LOC: ER 07:26
DX: N64.4 Mastodynia (principal); R07.89 Other chest pain; E11.9 Type 2 diabetes mellitus without complications; K21.9 Gastro-esophageal reflux disease without esophagitis; Z88.5 Allergy status to narcotic agent; Z79.84 Long term (current) use of oral hypoglycemic drugs; Z79.899 Other long term (current) drug therapy
CPT/HCPCS: 36415; 71045; 80053; 83690; 84484; 85025; 85379; 93005; 99284; J1885; J7121

== ENCOUNTER 2025-03-01 11:21 | Inpatient (IN) | payer MEDICARE ==
[2025-03-01] VITALS (7 sets, daily range): BP systolic 111–115; BP diastolic 58–65; PULSE 83–90; RESP 16–19; TEMP 98–98.5; O2SAT 100
[~2025-03-01] VITALS: Ht 167.6 cm; Wt 98.9 kg
[~2025-03-01 11:21] MED LIST changes: +ULTRAM 50MG50 MG PO
[2025-03-01] MEDS: ONDANSETRON HCL INJ 2MG/ML 2ML 2 MG/ML VIAL IV STA (11:58)
[2025-03-01] MEDS: SODIUM CHLORIDE 0.9% 1000ML 1,000 ML IV STA (11:58)
[2025-03-01 12:12] LABS: BASOPHILS % 0.3 % (0.0-1.0); EOSINOPHILS % 0.6 % (0.0-6.0); LYMPHOCYTES % 23.8 % (18.0-39.1); MONOCYTES % 7.2 % (4.4-11.3); NEUTROPHILS % 67.8 % (38.7-80.0); RED CELL DISTRIBUTION WIDTH 14.6 % (11.7-14.4)
[2025-03-01] MEDS: INSULIN REGULAR, HUMAN 100 UNIT/1 ML IV ONE (12:12)
[2025-03-01 12:33] LABS: INR 0.94
[2025-03-01 12:43] LABS: EST GLOMERULAR FILTRATION RATE 29.0 ML/MIN (>=60)
[2025-03-01] MEDS ORDERED: DEXTROSE 50% SYRINGE 50 ML IV PRN (13:15)
[2025-03-01] MEDS ORDERED: ONDANSETRON HCL INJ 2MG/ML 2ML 2 MG/ML VIAL IV PRN (13:15)
[2025-03-01] MEDS ORDERED: DICYCLOMINE HCL 10 MG CAP PO PRN (15:45)
[2025-03-01] MEDS ORDERED: HYDROXYZINE HCL 25 MG TAB PO PRN (15:45)
[2025-03-01] MEDS: SODIUM CHLORIDE 0.9% 1000ML 1,000 ML IV SCH (15:46)
[2025-03-01] MEDS: INSULIN LISPRO 100 UNIT/1 ML 3ML VIAL SQ SCH (16:54)
[2025-03-01] MEDS ORDERED: TOUJEO SOL300 UNIT/1 (17:14)
[2025-03-01 17:15] LABS: LEUKOCYTE ESTERASE ,URINE NEGATIVE (NEGATIVE); PROTEIN,URINE DIPSTICK 2+ (NEGATIVE)
[2025-03-01 17:16] LABS: URINE UROBILINOGEN 0.2 mg/dL (0.2 - 1)
[2025-03-01 17:38] LABS: EPITHELIAL CELLS,URINE FEW /LPF
[2025-03-01] MEDS: INSULIN ASPART 70/30 100 UNITS/ML VIAL SC SCH (18:09)
[2025-03-01] MEDS ORDERED: EZETIMIBE10 MG (18:59)
[2025-03-01] MEDS ORDERED: MELOXICAM15 MG (18:59)
[2025-03-01] MEDS ORDERED: ROSUVASTATIN CA10 MG (18:59)
[2025-03-01] MEDS ORDERED: AMLODIPINE BESY10 MG (18:59)
[2025-03-01] MEDS ORDERED: PRECOSE50 MG PO (19:01)
[2025-03-01] MEDS ORDERED: TIZANIDINE HCL4 MG PO (19:03)
[2025-03-01] MEDS ORDERED: HYDROCHLOROTH12.5 MG (19:04)
[2025-03-01] MEDS: GABAPENTIN 300 MG CAP PO SCH (20:55)
[2025-03-01] MEDS: ATORVASTATIN 20 MG TAB PO SCH (20:55)
[2025-03-02 03:16] VITALS: BP 126/57; PULSE 83; RESP 18; TEMP 98.1; O2SAT 100
[2025-03-02 05:26] LABS: BASOPHILS % 0.3 % (0.0-1.0); EOSINOPHILS % 1.5 % (0.0-6.0); LYMPHOCYTES % 26.8 % (18.0-39.1); MONOCYTES % 7.1 % (4.4-11.3); NEUTROPHILS % 63.9 % (38.7-80.0); RED CELL DISTRIBUTION WIDTH 14.7 % (11.7-14.4)
[2025-03-02 05:52] LABS: EST GLOMERULAR FILTRATION RATE 41.0 ML/MIN (>=60)
[2025-03-02 08:37] VITALS: BP 132/72; PULSE 84; RESP 18; TEMP 98.1; O2SAT 100
[2025-03-02] MEDS ORDERED: LISINOPRIL 2.5 MG TAB PO SCH (09:00)
[2025-03-02] MEDS: FLUOXETINE HCL 20 MG CAP PO SCH (09:31)
[2025-03-02] MEDS: PIOGLITAZONE HCL 45 MG TAB PO SCH (09:32)
[2025-03-02] MEDS ORDERED: INSULIN GLARGINE 100 UNITS/ML VIAL SQ SCH (21:00)
== END 2025-03-02 10:45 | disposition home or self-care (01) | DRG 639 ==
LOC: ER 11:50 → ERHOLD 13:02 → MED/SURG2 18:54
PROVIDERS: ADMIT Internal Medicine; ATTEND Internal Medicine
DX: E11.65 Type 2 diabetes mellitus with hyperglycemia (principal); N18.30 Chronic kidney disease, stage 3 unspecified; I12.9 Hypertensive chronic kidney disease with stage 1 through stage 4 chronic kidney disease, or unspecified chronic kidney disease; E11.22 Type 2 diabetes mellitus with diabetic chronic kidney disease; E11.42 Type 2 diabetes mellitus with diabetic polyneuropathy; K21.9 Gastro-esophageal reflux disease without esophagitis; E78.5 Hyperlipidemia, unspecified; R51.9 Headache, unspecified; Z79.85 Long-term (current) use of injectable non-insulin antidiabetic drugs; Z79.84 Long term (current) use of oral hypoglycemic drugs; Z90.49 Acquired absence of other specified parts of digestive tract; Z90.710 Acquired absence of both cervix and uterus; Z91.041 Radiographic dye allergy status; Z88.5 Allergy status to narcotic agent; Z88.8 Allergy status to other drugs, medicaments and biological substances; F17.200 Nicotine dependence, unspecified, uncomplicated
CPT/HCPCS: 36415; 70450; 80053; 81001; 82550; 82948; 83690; 83735; 84484; 85025; 85610; 85730; 93005; 96372; 99284; J1815; J2405; J2470; J7030